=== PATIENT | male | born 1965 | race Caucasian/White ===

== ENCOUNTER 2020-09-18 21:49 | Observation (INO) ==
[2020-09-19] MEDS ORDERED: Perflutren Lipid Microsphere 1.3 ML in 0.9 % Sodium Chloride 8.7 ML IVP PRN (01:19)
[2020-09-19] MEDS ORDERED: Ondansetron 4 MG/2 ML VIAL IVP PRN (01:20)
[2020-09-19] MEDS ORDERED: Naloxone 0.4 MG/ML INJ IVP PRN (01:20)
[2020-09-19] MEDS ORDERED: *HR* Heparin 5,000 UNIT/ML VIAL IVP ONE (01:22)
[2020-09-19] MEDS ORDERED: *HR* Heparin 5,000 UNIT/ML VIAL IVP PRN ×2 (01:22)
[2020-09-19] MEDS ORDERED: Dextrose Gel 15 GM/37.5 ML TUBE PO PRN ×2 (01:25)
[2020-09-19] MEDS ORDERED: *HR* Dextrose 50 % in Water (Vial) 50 ML VIAL IVP PRN (01:25)
[2020-09-19] MEDS ORDERED: D5% in Water 1,000 ML IVC PRN (01:25)
[2020-09-19] MEDS: Heparin 25,000UNIT/250ML 1/2NS 25,000 UNIT/250 ML IV.SOLN IVC SCH (01:42)
[2020-09-19 02:15] LABS: Basophils # 0.1 K/mcL (0.0-0.2); Eosinophils # 0.1 K/mcL (0.0-0.6); Eosinophils % 1.4 %; Hematocrit 43.4 % (37.5-50.1); Hematocrit 43.9 % (37.5-50.1); Hemoglobin 14.7 g/dL (12.9-16.9); Hemoglobin 15.2 g/dL (12.9-16.9); Immature Granulocytes % 0.7 % (0-4); Lymphocytes # 2.8 K/mcL (0.6-4.6); Lymphocytes % 32.3 %; Mean Corpuscular HGB Conc 33.5 g/dL (31.6-35.5); Mean Corpuscular Hemoglobin 31.2 pg (28.0-33.3); Mean Corpuscular Hemoglobin 32.4 pg (28.0-33.3); Mean Corpuscular Volume 92.5 fL (83.0-100.0); Mean Corpuscular Volume 93.2 fL (83.0-100.0); Mean Platelet Volume 11.8 fL (9.4-12.4); Mean Platelet Volume 11.9 fL (9.4-12.4); Monocytes # 0.7 K/mcL (0.0-1.3); Monocytes % 7.6 %; Platelet Count 242 K/mcL (140-400); Platelet Count 244 K/mcL (140-400); Red Blood Count 4.69 M/mcL (4.19-5.50); Red Blood Count 4.71 M/mcL (4.19-5.50); Red Cell Distribution Width 12.6 % (11.5-14.5); Red Cell Distribution Width 12.7 % (11.5-14.5); White Blood Count 8.7 K/mcL (4.3-11.1)
[2020-09-19] MEDS ORDERED: *HR* Metoprolol 5 MG/5 ML VIAL IVP PRN ×2 (02:17→23:32)
[2020-09-19 02:28] LABS: Heparin anti-factor XA UFH 0.08 IU/mL (0.30-0.70); INR 1.1; Prothrombin Time 12.2 Seconds (9.4-12.1)
[2020-09-19 02:33] LABS: Alanine Aminotransferase 20 Units/L (7-52); Albumin 4.1 g/dL (3.5-5.7); Albumin/Globulin Ratio 1.5 (1.1-2.2); Alkaline Phosphatase 85 Units/L (34-104); Aspartate Amino Transferase 16 Units/L (13-39); BUN/Creatinine Ratio 11 (6-26); Bilirubin,Total 0.7 mg/dL (0.3-1.0); Blood Urea Nitrogen 10 mg/dL (6-20); Calcium 8.9 mg/dL (8.6-10.3); Carbon Dioxide 24 mEq/L (23-29); Chloride 103 mEq/L (98-107); Chol/HDL Ratio 4.4 (0-4.9); Cholesterol 160 mg/dL (< 200); Globulin 2.7 g/dL (2.4-3.5); Glucose 128 mg/dL (70-105); HDL Cholesterol 36 mg/dL (40-59); LDL Cholesterol,Calculated 98 mg/dL (< 100); Osmolality,Calculated 283 (280-300); Potassium 3.9 mEq/L (3.5-5.1); Sodium 136 mEq/L (136-145); Total Protein 6.8 g/dL (6.4-8.9); Triglycerides 131 mg/dL (< 150); eGFR For African Americans > 60 (> 60); eGFR For Non-African Americans > 60 (> 60)
[2020-09-19 03:10] LABS: Estimated Average Glucose 220 mg/dl; Hemoglobin A1C 9.3 %
[2020-09-19] MEDS ORDERED: Morphine Sulfate 2 MG/ML SYRINGE IVP PRN (03:10)
[2020-09-19] MEDS: Nitroglycerin 0.4 MG TAB.SUBL SL PRN ×3 (03:33→03:44)
[2020-09-19] MEDS: Insulin LISPRO 300 UNITS/3 ML VIAL SUBQ SCH ×3 (05:41→19:53)
[2020-09-19] MEDS ORDERED: *HR* LORazepam 2 MG/ML VIAL IVP ONE (07:46)
[2020-09-19] MEDS ORDERED: Aspirin 81 MG TAB.CHEW PO SCH (09:00)
[2020-09-19] MEDS ORDERED: *HR* LORazepam 2 MG/ML VIAL ONE (16:55)
[2020-09-19] MEDS: carvediloL 6.25 MG TABLET PO SCH (17:01)
[2020-09-19] MEDS: Insulin DETEMIR 100 UNIT/ML X5UNITS SUBQ SCH (17:02)
[2020-09-19] MEDS: Acetaminophen 325 MG TABLET PO PRN ×2 (17:03→21:15)
[2020-09-19] MEDS: Ranolazine 500 MG TAB.ER.12H PO SCH (17:03)
[2020-09-20] MEDS: Insulin LISPRO 300 UNITS/3 ML VIAL SUBQ SCH ×4 (04:50→19:59)
[2020-09-20] MEDS: Ranolazine 500 MG TAB.ER.12H PO SCH ×2 (06:19→15:34)
[2020-09-20] MEDS: Heparin 25,000UNIT/250ML 1/2NS 25,000 UNIT/250 ML IV.SOLN IVC SCH (07:23)
[2020-09-20] MEDS: carvediloL 6.25 MG TABLET PO SCH ×3 (10:10→15:50)
[2020-09-20] MEDS: Insulin DETEMIR 100 UNIT/ML X5UNITS SUBQ SCH (11:27)
[2020-09-20] MEDS ORDERED: *HR* LORazepam 2 MG/ML VIAL IVP ONE (13:44)
[2020-09-21] MEDS: Insulin LISPRO 300 UNITS/3 ML VIAL SUBQ SCH ×2 (00:59→05:27)
[2020-09-21] MEDS: Heparin 25,000UNIT/250ML 1/2NS 25,000 UNIT/250 ML IV.SOLN IVC SCH (05:26)
[2020-09-21] MEDS: Ranolazine 500 MG TAB.ER.12H PO SCH (05:27)
[2020-09-21 07:51] VITALS: BP 137/83; PULSE 75; TEMP 97.4; O2SAT 93
[2020-09-21] MEDS: Insulin DETEMIR 100 UNIT/ML X5UNITS SUBQ SCH (09:13)
[2020-09-21] MEDS: carvediloL 6.25 MG TABLET PO SCH (09:13)
== END 2020-09-21 12:42 | disposition home or self-care (01) ==
LOC: 3BNU → SUATTDRO 09-19 00:07
PROVIDERS: ADMIT Family Medicine; ATTEND Internal Medicine

== ENCOUNTER 2021-05-04 23:15 | Observation (INO) ==
[2021-05-05] MEDS ORDERED: Naloxone 0.4 MG/ML INJ IVP PRN (02:08)
[2021-05-05] MEDS ORDERED: Ondansetron 4 MG/2 ML VIAL IVP PRN (02:08)
[2021-05-05] MEDS ORDERED: Acetaminophen 325 MG TABLET PO PRN (02:08)
[2021-05-05] MEDS ORDERED: Melatonin 3 MG TABLET PO PRN (02:08)
[2021-05-05] MEDS ORDERED: Morphine Sulfate 2 MG/ML SYRINGE IVP PRN (02:59)
[2021-05-05 05:28] LABS: Basophils # 0.1 K/mcL (0.0-0.2); Eosinophils # 0.3 K/mcL (0.0-0.6); Eosinophils % 4.3 %; Hematocrit 42.8 % (37.5-50.1); Hemoglobin 14.5 g/dL (12.9-16.9); Immature Granulocytes % 0.6 % (0-4); Lymphocytes # 3.3 K/mcL (0.6-4.6); Lymphocytes % 41.9 %; Mean Corpuscular HGB Conc 33.9 g/dL (31.6-35.5); Mean Corpuscular Volume 94.5 fL (83.0-100.0); Mean Platelet Volume 12.3 fL (9.4-12.4); Monocytes # 0.6 K/mcL (0.0-1.3); Monocytes % 7.7 %; Platelet Count 245 K/mcL (140-400); Red Blood Count 4.53 M/mcL (4.19-5.50); Red Cell Distribution Width 12.7 % (11.5-14.5); Segmented Neutrophils % 44.5 %; White Blood Count 7.8 K/mcL (4.3-11.1)
[2021-05-05 05:34] LABS: Prothrombin Time 10.7 Seconds (9.4-12.1)
[2021-05-05 05:39] LABS: Neutrophils # 3.5 K/mcL (1.6-8.9)
[2021-05-05 05:56] LABS: Alanine Aminotransferase 18 Units/L (7-52); Albumin 3.8 g/dL (3.5-5.7); Albumin/Globulin Ratio 1.5 (1.1-2.2); Alkaline Phosphatase 100 Units/L (34-104); Aspartate Amino Transferase 14 Units/L (13-39); BUN/Creatinine Ratio 16 (6-26); Bilirubin,Total 0.3 mg/dL (0.3-1.0); Blood Urea Nitrogen 16 mg/dL (6-20); Calcium 9.2 mg/dL (8.6-10.3); Carbon Dioxide 22 mEq/L (23-29); Chloride 106 mEq/L (98-107); Globulin 2.6 g/dL (2.4-3.5); Glucose 153 mg/dL (70-105); Magnesium 1.8 mg/dL (1.6-2.6); Osmolality,Calculated 286 (280-300); Phosphorous 3.9 mg/dL (2.7-4.5); Potassium 4.2 mEq/L (3.5-5.1); Sodium 136 mEq/L (136-145); Total Protein 6.4 g/dL (6.4-8.9); Troponin I 0.03 ng/mL (< 0.04); eGFR For African Americans > 60 (> 60); eGFR For Non-African Americans > 60 (> 60)
[2021-05-05 06:02] LABS: Platelet Estimate Normal (Normal); Reactive Lymphocytes Present (Not Present)
[2021-05-05] MEDS ORDERED: D5% in Water 1,000 ML IVC PRN (07:02)
[2021-05-05] MEDS ORDERED: *HR* Dextrose 50 % in Water (Syg) 50 ML SYRINGE IVP PRN (07:02)
[2021-05-05] MEDS ORDERED: Dextrose Gel 15 GM/37.5 ML TUBE PO PRN ×2 (07:02)
[2021-05-05 08:23] LABS: Cholesterol 170 mg/dL (< 200); HDL Cholesterol 42 mg/dL (40-59); LDL Cholesterol,Calculated 87 mg/dL (< 100); Triglycerides 205 mg/dL (< 150)
[2021-05-05 10:51] LABS: Estimated Average Glucose 232 mg/dl; Hemoglobin A1C 9.7 %
[2021-05-05] MEDS: Insulin LISPRO 300 UNITS/3 ML VIAL SUBQ SCH ×2 (12:17→18:13)
[2021-05-05] MEDS: *HR* OxyCODONE/APAP 5/325 TABLET PO PRN ×2 (14:52→23:12)
[2021-05-05] MEDS: *HR* Heparin 5,000 UNIT/ML VIAL SQ SCH (18:14)
[2021-05-05] MEDS: Pregabalin 75 MG CAPSULE PO SCH (19:54)
[2021-05-06] MEDS: Insulin LISPRO 300 UNITS/3 ML VIAL SUBQ SCH ×3 (00:21→11:57)
[2021-05-06 03:52] VITALS: O2SAT 96
[2021-05-06] MEDS: *HR* Heparin 5,000 UNIT/ML VIAL SQ SCH (05:15)
[2021-05-06] MEDS ORDERED: Regadenoson 0.4 MG/5 ML SYRINGE IVP ONE (06:13)
[2021-05-06 07:02] VITALS: BP 155/91; PULSE 80; TEMP 98.2
[2021-05-06] MEDS: Pregabalin 75 MG CAPSULE PO SCH (07:21)
[2021-05-06] MEDS: *HR* OxyCODONE/APAP 5/325 TABLET PO PRN (07:21)
[2021-05-06] MEDS ORDERED: Aspirin 81 MG TAB.CHEW PO SCH (09:00)
[2021-05-06] MEDS ORDERED: Perflutren Lipid Microsphere 1.3 ML in 0.9 % Sodium Chloride 8.7 ML IVP PRN (10:20)
== END 2021-05-06 13:49 | disposition left against medical advice (07) ==
LOC: 3BNU → SUATTDRO 05-05 00:50
PROVIDERS: ADMIT Internal Medicine; ATTEND Internal Medicine